=== PATIENT | male | born 1975 | race Caucasian/White ===

== ENCOUNTER 2022-08-12 06:29 | Day surgery (SDC) | payer SELFPAY ==
[2022-08-12] MEDS ORDERED: Dextrose 5%-Lactated Ringers 1,000 ML IV SCH (07:00)
[2022-08-12] MEDS ORDERED: Propofol 200 MG/20 ML SDV ONE (07:05)
[2022-08-12] MEDS ORDERED: Midazolam 1 MG/ML 2 ML SDV ONE (07:05)
[2022-08-12] MEDS ORDERED: fentaNYL 50 MCG/ML SDV ONE (07:05)
== END 2022-08-12 09:27 | disposition home or self-care (01) ==
LOC: JP.SDS 06:29
PROVIDERS: ATTEND Family Medicine
DX: Z12.11 Encounter for screening for malignant neoplasm of colon (principal); D12.3 Benign neoplasm of transverse colon; D12.8 Benign neoplasm of rectum; E11.9 Type 2 diabetes mellitus without complications; Z79.84 Long term (current) use of oral hypoglycemic drugs
CPT/HCPCS: 45380; 88305; J2250; J2704; J3010; J7121